=== PATIENT | male | born 1980 | race Caucasian/White ===

== ENCOUNTER → 2017-03-31 | Outpatient (CLI) | payer SELFPAY ==
[2017-03-31 15:11] LABS: HEMOGLOBIN 15.3 gm/dL (13.0-16.0); MEAN CELL VOLUME 89.5 FL (83-96); MEAN CORPUSCULAR HEMOGLOBIN 29.7 PG (28-34); MEAN CORPUSCULAR HGB CONC 33.2 g/dL (30-36); MEAN PLATELET VOLUME 9.5 FL (6.5-11.5); RED BLOOD COUNT 5.14 X10e (3.90-5.60); RED CELL DISTRIBUTION WIDTH 14.4 % (11.0-15.5); WHITE BLOOD COUNT 5.2 X10e3 (4.0-10.5)
[2017-03-31 15:36] LABS: ALBUMIN SERUM 4.5 g/dL (3.5-5.0); BILIRUBIN,TOTAL 0.1 mg/dL (0.2-2.0); BUN/CREATININE RATIO 13.33; CALCIUM SERUM 9.1 mg/dL (8.4-10.2); CREATININE SERUM 0.9 mg/dL (0.6-1.4); POTASSIUM 4.3 mmol/L (3.5-5.1); PROTEIN TOTAL SERUM 7.1 g/dL (6.0-8.3)
[2017-03-31 15:43] LABS: THYROID STIMULATING HORMONE 0.54 uIU/ml (0.34-5.60)
[2017-03-31 15:50] LABS: FREE THYROXIN (T4) 0.72 ng/dL (0.58-1.64)
== END | disposition home or self-care (01) ==
LOC: CLAB 14:30
PROVIDERS: Psychiatry & Neurology Psychiatry
DX: F33.41 Major depressive disorder, recurrent, in partial remission (principal)
CPT/HCPCS: 36415; 80053; 84439; 84443; 85027